=== PATIENT | female | born 1945 | race Caucasian/White ===

== ENCOUNTER 2022-08-19 06:20 | Day surgery (SDC) | payer MEDICARE ==
[~2022-08-19] VITALS: Ht 170.2 cm; Wt 83.4 kg
[~2022-08-19 06:20] MED LIST: LEVSOD112 PO; LISI20 PO; Voltaren100 GM TOP
--- NOTE | 2022-08-19 06:42 | NUR ---
08/19/22 0642 José Kwong TETRACAINE INTO RIGHT EYE AT 0635 PLEDGET INTO RIGHT EYE AT 0637
== END 2022-08-19 08:10 | disposition home or self-care (01) ==
LOC: ORSCSDS 06:20
PROVIDERS: Ophthalmology
PROC: 08DJ3ZZ Extraction of Right Lens, Percutaneous Approach (ICD-10-PCS; principal; 2022-08-19 07:30)
DX: H25.11 Age-related nuclear cataract, right eye (principal); Z96.1 Presence of intraocular lens; I10 Essential (primary) hypertension; E07.9 Disorder of thyroid, unspecified; Z79.899 Other long term (current) drug therapy
CPT/HCPCS: J2001; J2250; J3010; J3301; J7040; V2632